=== PATIENT | female | born 1960 | race Caucasian/White ===

== ENCOUNTER → 2021-10-08 | Outpatient (CLI) | payer OTHER ==
--- NOTE | 2021-10-10 21:42 | DIREP ---
PROCEDURE:CT SOFT TISSUE NECK W/O COMPARISON:None. INDICATIONS:R22.1 Localized swelling, mass and lump, neck TECHNIQUE:CT images were created without intravenous contrast material. Sagittal and coronal reconstructions are performed. FINDINGS: NASOPHARYNX:Normal. Fossae of Rosenmuller and torus tubarius are symmetric. ORAL CAVITY:Normal. No visible mass. OROPHARYNX:Normal. Faucial and lingual tonsils are symmetric. HYPOPHARYNX:Normal. No mass or other visible lesion. LARYNX:Normal. The vocal cords are symmetric and without mass. SINUSES:Normal. Limited views show no significant fluid or mucosal thickening. NECK GLANDS:Normal. The parotid, submandibular, and thyroid glands are unremarkable. LYMPH NODES:Normal. No pathological-appearing or enlarged lymph nodes. SKULL BASE:Normal. Foramina are symmetric without bony erosion. VASCULATURE:Normal. Limited views are unremarkable. BONES:Straightening of cervical lordosis. Anterior osteophyte formation from C3 through C7. Disc narrowing C3-4 through C6-7. Mild facet arthrosis throughout. OTHER:Normal. No additional imaging findings. CONCLUSION: 1. No mass lesion identified. Lack of intravenous contrast limits sensitivity. No area of concern was marked on the skin. 2. Mild degenerative changes throughout the cervical spine. Dictated by: Scotty Hussein M.D. on 10/10/2021 at 09:38 PM
== END | disposition home or self-care (01) ==
LOC: RAD 10:07
PROVIDERS: ATTEND Family Medicine
DX: M47.812 Spondylosis without myelopathy or radiculopathy, cervical region (principal); R22.1 Localized swelling, mass and lump, neck
CPT/HCPCS: 70490